=== PATIENT | male | born 1965 | race Caucasian/White ===

== ENCOUNTER 2017-04-16 07:56 | Day surgery (SDC) | END 2017-04-16 17:40 | disposition home or self-care (01) | DX: M51.16 Intervertebral disc disorders with radiculopathy, lumbar region (principal); E03.9 Hypothyroidism, unspecified; I10 Essential (primary) hypertension | CPT/HCPCS: 63030; 72100; J1100; J1170; J2405; J3010; J3370; J7999 ==